=== PATIENT | female | born 2005 | race Caucasian/White ===

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

== ENCOUNTER 2023-03-26 08:09 | Outpatient (CLI) | payer OTHER, SELFPAY ==
--- NOTE | ~2023-03-26 | XR_ITS ---
EXAMINATION: XR lumbar spine 2-3V DATE: 03/26/2023 08:47 INDICATION: Left upper pelvic pain and left leg numbness TECHNIQUE: Anteroposterior and lateral views of the lumbar spine, and cone-down lateral view of the l umbosacral junction were obtained. COMPARISON: None. FINDINGS: Alignment is normal. Vertebral body heights are normal. Mild disc height loss at L4-L5 and L5-S1. Pro filed portion of the lumbar facet and bilateral sacral iliac joints appear normal. Moderate to large amount stool scattered throughout the colon. IMPRESSION: 1. Mild lower lumbar spondylosis. Reviewed, dictated and finalized at location A.
--- NOTE | ~2023-03-26 | XR_ITS ---
EXAMINATION:XR cervical spine 4-5V DATE: 03/26/2023 08:47 INDICATION: Right-sided neck pain TECHNIQUE: AP, lateral, lateral swimmers and odontoid views of the cervical spine are provided. COMPARISON: None FINDINGS: Straightening of the normal cervical lordosis. Odontoid is intact. Normal atlantoaxial interval. Ramon tebral body heights are normal. Minimal disc height loss with tiny anterior endplate osteophytes at C 5-C6. Mild uncovertebral osteoarthritis bilaterally at C5-C6, on the right at C4-C5 and left at C3-C4 . Moderate facet osteoarthritis at C7-T1. Minimal to mild facet osteoarthritis in the more cephalad c ervical spine. Prevertebral soft tissues are normal. IMPRESSION: 1. Mild cervical spondylosis. Reviewed, dictated and finalized at location A.
== END 2023-03-26 08:10 ==
LOC: MICIMG 08:12
PROVIDERS: PCP Pediatrics; Visit Provider Pediatrics
DX: M47.896 Other spondylosis, lumbar region (principal); M47.892 Other spondylosis, cervical region
CPT/HCPCS: 72050; 72100

== ENCOUNTER 2023-05-18 07:48 | Outpatient (CLI) | payer OTHER, SELFPAY ==
--- NOTE | ~2023-05-18 | MR_ITS ---
MRI of the lumbar spine Clinical History: Left leg numbness Technique: Axial T2-weighted images, and sagittal T1-weighted, T2-weighted, and T2 fat-sat images wer e acquired. Following intravenous administration of 15 cc MultiHance gadolinium, T1-weighted fat-sat imaging was performed in the axial and sagittal planes. Findings: There is no fracture or subluxation of the lumbar spine. Visualized maintain normal height and alignment. No bone marrow signal abnormality seen. At L1-L2, L2-L3, L3-L4, there is no disc bulge or herniation. No spinal canal stenosis or neural fora bobbi narrowing at these levels. At L4-L5, there is central disc herniation/extrusion with mild facet arthropathy. These factors resul t in severe spinal canal stenosis/thecal sac compression. Bilateral neural foramina are preserved. At L5-S1, there is broad-based central disc protrusion with annular fissure. There is mild to moderat e facet arthropathy. There is minimal central canal stenosis/thecal sac compression. Bilateral neural foramina are preserved. Paravertebral soft tissues are unremarkable. No abnormal postcontrast enhancement identified. Impression: Central disc herniation/extrusion at L4-L5, resulting in severe spinal canal stenosis/thecal sac comp ression. Broad-based central disc protrusion at L5-S1, annular fissure and mild central canal stenosis. Reviewed, dictated and finalized at [facility]. ING QUALITY STANDARD INSPECTOR Impression: Central disc herniation/extrusion at L4-L5, resulting in severe spinal canal st enosis/thecal sac compression. Broad-based central disc protrusion at L5-S1, annular fissure and mild central canal stenosis.
--- NOTE | ~2023-05-18 | MR_ITS ---
MRI of the cervical spine Clinical History: Left leg numbness Technique: Axial T2-weighted and gradient images, and sagittal T1-weighted, T2-weighted, and STIR farrah ges were acquired. Following intravenous administration of 15 cc MultiHance gadolinium, T1-weighted f at-sat imaging was performed in the axial and sagittal planes. Findings: There is straightening of the normal cervical lordosis. No fracture or sublocation identifi ed. Bone marrow signals are unremarkable. No significant disc bulge or herniation seen at any cervical level. There is no spinal canal stenosis , cord compression, or neural foraminal narrowing at any cervical level. No abnormal signal seen in the spinal cord. No epidural mass or collection seen. Paravertebral soft t issues are unremarkable. No abnormal postcontrast enhancement identified. Impression: Unremarkable exam. Reviewed, dictated and finalized at [facility]. DRESSER Impression: Unremarkable exam.
== END 2023-05-18 07:49 ==
PROVIDERS: Visit Provider Neurological Surgery
DX: R20.0 Anesthesia of skin (principal); M51.26 Other intervertebral disc displacement, lumbar region; M51.27 Other intervertebral disc displacement, lumbosacral region
CPT/HCPCS: 72156; 72158; A9577

== ENCOUNTER 2023-06-20 13:34 | Outpatient (CLI) | payer OTHER, SELFPAY ==
--- NOTE | ~2023-06-20 | MR_ITS ---
MRI of the brain Clinical History: Foot drop Technique: Axial and sagittal T1-weighted images were acquired. These were followed by axial T2-weigh kristi, diffusion weighted, gradient, and FLAIR images. Following intravenous administration of 17 cc Mu ltiHance gadolinium, T1-weighted fat-sat imaging was performed in the axial and coronal planes. Findings: No abnormal signal seen in the brain parenchyma. No acute infarct, intracranial hemorrhage, or mass lesion. Ventricles and subarachnoid spaces are unremarkable. Orbits are unremarkable. Paranasal sinuses and m astoid air cells are clear. Major intracranial flow voids are intact. Sagittal midline structures are intact. No abnormal postcontrast enhancement identified. IMPRESSION: Unremarkable exam. Reviewed, dictated and finalized at location M. OYEE DEVELOPMENT SPECIALIST IMPRESSION: Unremarkable exam.
== END 2023-06-20 13:35 ==
LOC: MICIMG 13:35
PROVIDERS: PCP Neurological Surgery; Visit Provider Neurological Surgery
DX: M21.372 Foot drop, left foot (principal)
CPT/HCPCS: 70553; A9577

== ENCOUNTER 2023-06-21 07:26 | Outpatient (CLI) | payer OTHER, SELFPAY ==
--- NOTE | 2023-06-21 | ECG_ITS ---
Measurements Intervals [place] Rate: 84 P: 55 MD: 138 QRS: 50 QRSD: 91 T: 53 QT: 381 QTc: 452 Interpretive Statements SINUS RHYTHM WITH SINUS ARRHYTHMIA NORMAL ELECTROCARDIOGRAM NO PREVIOUS ECG AVAILABLE FOR COMPARISON Electronically Signed On 06-21-2023 17:42:08 WOOL WASHER by Josh Dunham M.D.
--- NOTE | ~2023-06-21 | XR_ITS ---
EXAMINATION: XR chest 2V DATE: 06/21/2023 07:46 INDICATION: Back pain TECHNIQUE: PA and lateral views of the chest are obtained. COMPARISON: 02/17/2021 FINDINGS: The lungs are free of acute opacities. No pleural effusion or pneumothorax. The cardiomedia stinal silhouette is normal. There are 18 degrees of thoracic dextroscoliosis. IMPRESSION: 1. No acute cardiopulmonary abnormality. Reviewed, dictated and finalized at location D. [employer]
== END 2023-06-21 07:27 | disposition home or self-care (01) ==
PROVIDERS: PCP Pediatrics; Visit Provider Neurological Surgery
DX: M54.16 Radiculopathy, lumbar region (principal); Z01.818 Encounter for other preprocedural examination
CPT/HCPCS: 71046; 93005

== ENCOUNTER 2023-10-16 10:05 | Outpatient (CLI) | payer OTHER, SELFPAY ==
--- NOTE | ~2023-10-16 | MR_ITS ---
MRI of the lumbar spine Clinical History: Radiculopathy Technique: Axial T2-weighted images, and sagittal T1-weighted, T2-weighted, and and T2 fat-sat images were acquired. COMPARISON: 05/18/2023 Findings: There is no fracture or subluxation of the lumbar spine. Vertebral bodies maintain normal h eight and alignment. No suspicious bone marrow signal abnormality seen. At L1-L2, L2-L3, L3-L4, intervertebral discs maintain normal signal and position. No disc bulge or he rniation at these levels. There are mild to moderate facet joint degenerative changes at these levels . No spinal canal stenosis or neural foraminal narrowing at these levels. At L4-L5, there is disc desiccation with mild disc bulge/protrusion and tiny annular fissure. There i s mild facet arthropathy. There is no jocy central canal stenosis. There is preservation neural fora quang. At L5-S1, there is central disc protrusion with small annular fissure. There is mild to moderate face t arthropathy. There is minimal central canal stenosis and minimal bilateral neural foraminal narrowi ng. Paravertebral soft tissues are unremarkable. Impression: Mild degenerative spondylosis at L4-L5 and L5-S1, as detailed above. Reviewed, dictated and finalized at location . Impression: Mild degenerative spondylosis at L4-L5 and L5-S1, as detailed above.
== END 2023-10-16 10:06 ==
LOC: MICIMG 10:06
PROVIDERS: PCP Neurological Surgery; Visit Provider Neurological Surgery
DX: M47.26 Other spondylosis with radiculopathy, lumbar region (principal)
CPT/HCPCS: 72148